=== PATIENT | female | born 1965 | race Two or more races ===

== ENCOUNTER 2021-03-11 22:48 | Inpatient (IN) | payer MEDICAID, OTHER ==
[~2021-03-11] VITALS: Ht 172.7 cm; Wt 78.5 kg
[2021-03-11] MEDS ORDERED: IPRATROPIUM BROMIDE (0.02%) 0.5MG/2.5ML NEB HHN STA (23:59)
[2021-03-11] MEDS ORDERED: ALBUTEROL (0.083%) 2.5MG/3ML NEB HHN STA (23:59)
[2021-03-11] MEDS ORDERED: METHYLPREDNISOLONE SOD SUCC 125 MG/2 ML VIAL IV STA (23:59)
[2021-03-12 01:26] LABS: HEMATOCRIT. 36.6 % (36.0-48.0); HEMOGLOBIN. 11.7 g/dL (12.0-16.0); MEAN CORPUSCULAR HEMOGLOBIN 27.2 pg (28.0-32.0); MEAN CORPUSCULAR VOLUME 85.3 fL (81.0-99.0); MEAN PLATELET VOLUME 8.3 fl (7.4-10.4); PLATELET 299 x1000/uL (130-400); RED BLOOD CELL COUNT 4.29 mill/uL (4.2-5.4)
[2021-03-12 01:35] LABS: CHLORIDE 108 mEq/L (98-107)
[2021-03-12 01:53] LABS: PLATELET ESTIMATE NORMAL
[2021-03-12 03:19] LABS: BG BASE EXCESS 1.6 mmol/L (-2.0-2.0); BG CARBOXYHEMOGLOBIN 0.4 % (0.5-1.5); BG DEOXYHEMOGLOBIN 0.7 % (0.0-5.0); BG FRACTION INSPIRED OXYGEN 100; BG HCO3 ACT 28.6 mmol/L (22.0-26.0); BG METHEMOGLOBIN 0.3 % (0.0-1.5); BG OXYGEN SATURATION 99.3 % (92.0-98.5); BG OXYHEMOGLOBIN 98.6 % (94.0-97.0); BG PCO2 55.3 mmHg (35.0-45.0); BG PH 7.331 (7.350-7.450); BG PO2 283.7 mmHg (75.0-100.0); BG SAMPLE SITE LEFT RADIAL; BG TOTAL HEMOGLOBIN 13.2 g/dL (12.0-18.0); BG VENT MODE MASK - BIPAP
[2021-03-12] MEDS ORDERED: ACETAMINOPHEN 325MG TABLET PO PRN (10:15)
[2021-03-12] MEDS ORDERED: IPRATROPIUM/ALBUTEROL 0.5-3(2.5)MG/3ML NEB HHN PRN (10:15)
[2021-03-12] MEDS ORDERED: CEFTRIAXONE 1,000 MG in DEXTROSE 5% WATER 50 ML IV SCH (10:30)
[2021-03-12] MEDS ORDERED: CEFTRIAXONE SODIUM 1 G/VIAL ONE (10:44)
[2021-03-12] MEDS ORDERED: DEXTROSE 50% WATER 50ML SYRINGE IV PRN (11:00)
[2021-03-12] MEDS: METHYLPREDNISOLONE SOD SUCC 40 MG/ML VIAL IV SCH ×2 (11:23→18:02)
[2021-03-12] MEDS: BLOOD SUGAR DIAGNOSTIC STRIP TEST SCH ×4 (11:42→20:09)
[2021-03-12 11:58] LABS: CLARITY URINE CLEAR (CLEAR); COLOR URINE YELLOW (YELLOW); KETONES URINE NEGATIVE (NEGATIVE); LEUKOCYTE ESTERASE URINE NEGATIVE (NEGATIVE); NITRITE URINE NEGATIVE (NEGATIVE); OCCULT BLOOD URINE NEGATIVE (NEGATIVE); PH URINE 7.5 (4.5-8.0); PROTEIN URINE NEGATIVE (NEGATIVE); SPECIFIC GRAVITY URINE 1.008 (1.005-1.030)
[2021-03-12 13:38] LABS: BG BASE EXCESS 4.4 mmol/L (-2.0-2.0); BG CARBOXYHEMOGLOBIN 0.2 % (0.5-1.5); BG DEOXYHEMOGLOBIN 1.8 % (0.0-5.0); BG FRACTION INSPIRED OXYGEN 40; BG HCO3 ACT 31.3 mmol/L (22.0-26.0); BG METHEMOGLOBIN 0.1 % (0.0-1.5); BG OXYGEN SATURATION 98.2 % (92.0-98.5); BG OXYHEMOGLOBIN 97.9 % (94.0-97.0); BG PCO2 57.9 mmHg (35.0-45.0); BG PH 7.351 (7.350-7.450); BG PO2 125.4 mmHg (75.0-100.0); BG SAMPLE SITE RIGHT BRACHIAL; BG TOTAL HEMOGLOBIN 12.1 g/dL (12.0-18.0); BG VENT MODE NASAL CANNULA
[2021-03-12] MEDS: INSULIN LISPRO 100 UNITS/ML SUBCUT SCH ×4 (13:50→20:09)
[2021-03-12 15:09] VITALS: BP 137/81
[2021-03-12 16:00] VITALS: BP 137/81
[2021-03-12] MEDS ORDERED: ASPI-1497 PO (17:33)
[2021-03-12] MEDS ORDERED: CLON1TAB23 PO (17:33)
[2021-03-12] MEDS ORDERED: AMLO10TA80 PO (17:33)
[2021-03-12] MEDS ORDERED: CLOZ100T31 MT (17:39)
[2021-03-12 18:00] VITALS: BP 105/74
[2021-03-12 20:00] VITALS: BP 123/92
[2021-03-12] MEDS: TEMAZEPAM 15MG CAPSULE PO SCH (20:09)
[2021-03-12] MEDS: FAMOTIDINE 20MG TABLET PO SCH (20:09)
[2021-03-12] MEDS: CLONAZEPAM 1MG TABLET PO SCH (20:09)
[2021-03-12] MEDS: LAMOTRIGINE 100MG TABLET PO SCH (20:09)
[2021-03-12] MEDS ORDERED: CLOZAPINE 100 MG TABLET XX SCH (21:00)
[2021-03-12 22:00] VITALS: BP 154/62
[2021-03-12 23:32] LABS: BG BASE EXCESS -2.1 mmol/L (-2.0-2.0); BG CARBOXYHEMOGLOBIN 0.1 % (0.5-1.5); BG DEOXYHEMOGLOBIN 1.2 % (0.0-5.0); BG FRACTION INSPIRED OXYGEN 100; BG METHEMOGLOBIN 0.3 % (0.0-1.5); BG OXYGEN SATURATION 98.8 % (92.0-98.5); BG OXYHEMOGLOBIN 98.4 % (94.0-97.0); BG PH 7.211 (7.350-7.450); BG PO2 198.4 mmHg (75.0-100.0); BG SAMPLE SITE LEFT RADIAL; BG TOTAL HEMOGLOBIN 12.3 g/dL (12.0-18.0); BG VENT MODE MASK - NRB
[2021-03-13] VITALS (12 sets, daily range): BP systolic 83–166; BP diastolic 39–94
[2021-03-13] MEDS: METHYLPREDNISOLONE SOD SUCC 40 MG/ML VIAL IV SCH ×3 (01:36→17:47)
[2021-03-13] MEDS: BLOOD SUGAR DIAGNOSTIC STRIP TEST SCH ×4 (07:30→20:32)
[2021-03-13] MEDS: INSULIN LISPRO 100 UNITS/ML SUBCUT SCH ×4 (08:00→20:36)
[2021-03-13 08:41] LABS: HEMATOCRIT. 34.2 % (36.0-48.0); HEMOGLOBIN. 10.9 g/dL (12.0-16.0); MEAN CORPUSCULAR HEMOGLOBIN 27.5 pg (28.0-32.0); MEAN CORPUSCULAR VOLUME 86.5 fL (81.0-99.0); MEAN PLATELET VOLUME 8.2 fl (7.4-10.4); PLATELET 309 x1000/uL (130-400); RED BLOOD CELL COUNT 3.96 mill/uL (4.2-5.4); RED CELL DISTRIBUTION WIDTH 15.6 % (11.6-14.6)
[2021-03-13 08:48] LABS: CHLORIDE 107 mEq/L (98-107)
[2021-03-13] MEDS ORDERED: INFLUENZA VACCINE 05/PF 0.5 ML SYRINGE IM ONE (09:00)
[2021-03-13] MEDS: LITHIUM CARBONATE 150 MG CAPSULE PO SCH ×2 (10:22→17:47)
[2021-03-13] MEDS: CEFTRIAXONE 1,000 MG in DEXTROSE 5% WATER 50 ML IV SCH (10:22)
[2021-03-13] MEDS: ENOXAPARIN 40MG/0.4ML SYR SUBCUT SCH (13:25)
[2021-03-13 13:41] LABS: PLATELET ESTIMATE NORMAL
[2021-03-13 14:53] LABS: BG BASE EXCESS 2.5 mmol/L (-2.0-2.0); BG CARBOXYHEMOGLOBIN 0.3 % (0.5-1.5); BG DEOXYHEMOGLOBIN 1.3 % (0.0-5.0); BG FRACTION INSPIRED OXYGEN 70; BG HCO3 ACT 29.7 mmol/L (22.0-26.0); BG OXYGEN SATURATION 98.7 % (92.0-98.5); BG OXYHEMOGLOBIN 98.4 % (94.0-97.0); BG PCO2 59.6 mmHg (35.0-45.0); BG PH 7.316 (7.350-7.450); BG PO2 168.3 mmHg (75.0-100.0); BG SAMPLE SITE RIGHT BRACHIAL; BG TOTAL HEMOGLOBIN 11.3 g/dL (12.0-18.0); BG TOTAL RESPIRATORY RATE 23 b/min; BG VENT MODE MASK - BIPAP
[2021-03-13] MEDS: CLONAZEPAM 1MG TABLET PO SCH (20:31)
[2021-03-13] MEDS: FAMOTIDINE 20MG TABLET PO SCH (20:31)
[2021-03-13] MEDS: LAMOTRIGINE 100MG TABLET PO SCH (20:31)
[2021-03-13] MEDS: TEMAZEPAM 15MG CAPSULE PO SCH (20:31)
[2021-03-13] MEDS: CLOZAPINE 100 MG TABLET XX SCH (20:32)
[2021-03-13] MEDS: CLOZAPINE 200 MG XX SCH (20:32)
[2021-03-14] VITALS (9 sets, daily range): BP systolic 103–157; BP diastolic 58–91
[2021-03-14] MEDS: METHYLPREDNISOLONE SOD SUCC 40 MG/ML VIAL IV SCH ×3 (02:33→18:18)
[2021-03-14] MEDS: ONDANSETRON HCL 4MG/2ML INJ IV PRN ×2 (04:57→06:37)
[2021-03-14 08:11] LABS: HEMOGLOBIN. 11.2 g/dL (12.0-16.0); MEAN CORPUSCULAR HEMOGLOBIN 27.5 pg (28.0-32.0); MEAN CORPUSCULAR VOLUME 86.1 fL (81.0-99.0); MEAN PLATELET VOLUME 8.3 fl (7.4-10.4); PLATELET 309 x1000/uL (130-400); RED BLOOD CELL COUNT 4.06 mill/uL (4.2-5.4); RED CELL DISTRIBUTION WIDTH 15.4 % (11.6-14.6)
[2021-03-14 08:18] LABS: CHLORIDE 106 mEq/L (98-107)
[2021-03-14] MEDS: ENOXAPARIN 40MG/0.4ML SYR SUBCUT SCH (09:35)
[2021-03-14] MEDS: LITHIUM CARBONATE 150 MG CAPSULE PO SCH ×2 (09:36→18:19)
[2021-03-14] MEDS: CEFTRIAXONE 1,000 MG in DEXTROSE 5% WATER 50 ML IV SCH (09:36)
[2021-03-14] MEDS ORDERED: LORAZEPAM 2MG/ML CPJ IV PRN (11:00)
[2021-03-14 12:43] LABS: BG BASE EXCESS 5.9 mmol/L (-2.0-2.0); BG CARBOXYHEMOGLOBIN 0.4 % (0.5-1.5); BG DEOXYHEMOGLOBIN 2.1 % (0.0-5.0); BG FRACTION INSPIRED OXYGEN 36; BG HCO3 ACT 32.3 mmol/L (22.0-26.0); BG METHEMOGLOBIN 0.3 % (0.0-1.5); BG OXYGEN SATURATION 97.9 % (92.0-98.5); BG OXYHEMOGLOBIN 97.2 % (94.0-97.0); BG PCO2 55.8 mmHg (35.0-45.0); BG PH 7.381 (7.350-7.450); BG PO2 108.9 mmHg (75.0-100.0); BG SAMPLE SITE LEFT RADIAL; BG TOTAL HEMOGLOBIN 11.5 g/dL (12.0-18.0); BG VENT MODE NASAL CANNULA
[2021-03-14 16:49] LABS: PLATELET ESTIMATE NORMAL
[2021-03-14] MEDS: CLONAZEPAM 1MG TABLET PO SCH (20:27)
[2021-03-14] MEDS: FAMOTIDINE 20MG TABLET PO SCH (20:27)
[2021-03-14] MEDS: LAMOTRIGINE 100MG TABLET PO SCH (20:28)
[2021-03-14] MEDS: CLOZAPINE 100 MG TABLET XX SCH (20:28)
[2021-03-14] MEDS: CLOZAPINE 200 MG XX SCH (20:28)
[2021-03-14] MEDS: TEMAZEPAM 15MG CAPSULE PO SCH (20:28)
[2021-03-15] VITALS: BP 127/73
[2021-03-15] MEDS: METHYLPREDNISOLONE SOD SUCC 40 MG/ML VIAL IV SCH ×2 (02:00→09:34)
[2021-03-15 04:00] VITALS: BP 121/69
[2021-03-15] MEDS: CEFTRIAXONE 1,000 MG in DEXTROSE 5% WATER 50 ML IV SCH (08:32)
[2021-03-15] MEDS: ENOXAPARIN 40MG/0.4ML SYR SUBCUT SCH (08:33)
[2021-03-15] MEDS: LITHIUM CARBONATE 150 MG CAPSULE PO SCH ×2 (08:34→20:48)
[2021-03-15 12:00] VITALS: BP 141/78
[2021-03-15 14:00] VITALS: BP 132/84
[2021-03-15 16:00] VITALS: BP 140/84
[2021-03-15 17:56] VITALS: BP 113/78
[2021-03-15] MEDS: TEMAZEPAM 15MG CAPSULE PO SCH (20:47)
[2021-03-15] MEDS: RISPERIDONE 0.5MG TABLET PO SCH (20:48)
[2021-03-15] MEDS: CLONAZEPAM 1MG TABLET PO SCH (20:48)
[2021-03-15] MEDS: LAMOTRIGINE 100MG TABLET PO SCH (20:48)
[2021-03-15] MEDS: FAMOTIDINE 20MG TABLET PO SCH (20:48)
[2021-03-15] MEDS: CLOZAPINE 200 MG XX SCH (20:55)
[2021-03-15] MEDS: CLOZAPINE 100 MG TABLET XX SCH (20:55)
[2021-03-15] MEDS ORDERED: METHYLPREDNISOLONE SOD SUCC 40 MG/ML VIAL IV SCH (21:00)
[2021-03-16] MEDS ORDERED: METHYLPREDNISOLONE SOD SUCC 40 MG/ML VIAL IV SCH (09:00)
[2021-03-16] MEDS: ENOXAPARIN 40MG/0.4ML SYR SUBCUT SCH (09:02)
[2021-03-16] MEDS: RISPERIDONE 0.5MG TABLET PO SCH ×2 (09:04→20:27)
[2021-03-16] MEDS: LITHIUM CARBONATE 150 MG CAPSULE PO SCH ×2 (09:05→17:12)
[2021-03-16] MEDS: CEFTRIAXONE 1,000 MG in DEXTROSE 5% WATER 50 ML IV SCH (09:26)
[2021-03-16 20:00] VITALS: BP 135/84
[2021-03-16] MEDS: TEMAZEPAM 15MG CAPSULE PO SCH (20:26)
[2021-03-16] MEDS: CLONAZEPAM 1MG TABLET PO SCH (20:27)
[2021-03-16] MEDS: LAMOTRIGINE 100MG TABLET PO SCH (20:28)
[2021-03-16] MEDS: CLOZAPINE 100 MG TABLET XX SCH (20:31)
[2021-03-16] MEDS: CLOZAPINE 200 MG XX SCH (20:31)
[2021-03-16] MEDS: FAMOTIDINE 20MG TABLET PO SCH (20:32)
[2021-03-17] VITALS: BP 119/62
[2021-03-17 04:00] VITALS: BP 113/64
[2021-03-17] MEDS: LITHIUM CARBONATE 150 MG CAPSULE PO SCH (08:10)
[2021-03-17] MEDS: RISPERIDONE 0.5MG TABLET PO SCH (08:10)
[2021-03-17] MEDS: CEFTRIAXONE 1,000 MG in DEXTROSE 5% WATER 50 ML IV SCH (08:11)
[2021-03-17] MEDS: ENOXAPARIN 40MG/0.4ML SYR SUBCUT SCH (08:11)
[2021-03-17 08:52] VITALS: BP 129/71
[2021-03-17 09:01] VITALS: BP 126/72
[2021-03-17] MEDS ORDERED: RISPERIDONE 0.5MG TABLET PO SCH (21:00)
== END 2021-03-17 16:15 | DRG 139 ==
LOC: ER 22:48 → MICUSO 03-12 03:40 → EDBEDREQTM 03-12 03:44 → EDBEDREQ 03-12 03:44 → EDBEDREQSVC 03-12 03:44 → 5EST 03-12 17:24
PROVIDERS: ADMIT Internal Medicine; ATTEND Internal Medicine
PROC: 5A09357 Assistance with Respiratory Ventilation, Less than 24 Consecutive Hours, Continuous Positive Airway Pressure (ICD-10-PCS; principal; 2021-03-12)
PROC: 5A09357 Assistance with Respiratory Ventilation, Less than 24 Consecutive Hours, Continuous Positive Airway Pressure (ICD-10-PCS; 2021-03-13)
DX: J18.9 Pneumonia, unspecified organism (principal); J96.01 Acute respiratory failure with hypoxia; G92.8 Other toxic encephalopathy; E87.2 Acidosis; F25.9 Schizoaffective disorder, unspecified; D72.829 Elevated white blood cell count, unspecified; E11.9 Type 2 diabetes mellitus without complications; J44.0 Chronic obstructive pulmonary disease with (acute) lower respiratory infection; J44.1 Chronic obstructive pulmonary disease with (acute) exacerbation; T38.0X5A Adverse effect of glucocorticoids and synthetic analogues, initial encounter; Z20.822 Contact with and (suspected) exposure to COVID-19; E87.8 Other disorders of electrolyte and fluid balance, not elsewhere classified; F31.9 Bipolar disorder, unspecified; Z99.81 Dependence on supplemental oxygen; Y92.89 Other specified places as the place of occurrence of the external cause
CPT/HCPCS: 36415; 36600; 71045; 80048; 80053; 81003; 82375; 82805; 82962; 83036; 83880; 84145; 84484; 85025; 87426; 87635; 90686; 93005; 94640; 94660; 99291; C1893; J0696; J1650; J1815; J2060; J2405; J2920; J2930; J7060

== ENCOUNTER 2021-03-22 03:48 | Inpatient (IN) | payer OTHER ==
[~2021-03-22] VITALS: Ht 162.6 cm; Wt 93.9 kg
[~2021-03-22 03:48] MED LIST: AMLO10TA80 PO; ASPI-1497 PO; CLON1TAB23 PO; CLOZ100T31 MT
[2021-03-22] MEDS ORDERED: IPRATROPIUM BROMIDE (0.02%) 0.5MG/2.5ML NEB HHN STA (03:55)
[2021-03-22] MEDS ORDERED: METHYLPREDNISOLONE SOD SUCC 125 MG/2 ML VIAL IV STA (03:55)
[2021-03-22] MEDS ORDERED: ALBUTEROL (0.083%) 2.5MG/3ML NEB HHN STA (03:55)
[2021-03-22] MEDS ORDERED: LEVOFLOXACIN 750MG PREMIX 150 ML IV ONE (04:00)
[2021-03-22] MEDS ORDERED: QUETIAPINE FUMARATE 50MG TABLET PO SCH (04:15)
[2021-03-22 05:19] LABS: CHLORIDE 108 mEq/L (98-107)
[2021-03-22 05:25] LABS: HEMATOCRIT. 38.3 % (36.0-48.0); MEAN CORPUSCULAR HEMOGLOBIN 27.6 pg (28.0-32.0); MEAN CORPUSCULAR VOLUME 87.8 fL (81.0-99.0); MEAN PLATELET VOLUME 8.1 fl (7.4-10.4); PLATELET 295 x1000/uL (130-400); RED BLOOD CELL COUNT 4.35 mill/uL (4.2-5.4); RED CELL DISTRIBUTION WIDTH 16.4 % (11.6-14.6)
[2021-03-22 05:40] LABS: BG BASE EXCESS 1.6 mmol/L (-2.0-2.0); BG CARBOXYHEMOGLOBIN 0.8 % (0.5-1.5); BG FRACTION INSPIRED OXYGEN 32; BG HCO3 ACT 27.9 mmol/L (22.0-26.0); BG OXYGEN SATURATION 92.9 % (92.0-98.5); BG OXYHEMOGLOBIN 92.2 % (94.0-97.0); BG PCO2 51.3 mmHg (35.0-45.0); BG PH 7.353 (7.350-7.450); BG PO2 67.3 mmHg (75.0-100.0); BG SAMPLE SITE RIGHT RADIAL; BG TOTAL HEMOGLOBIN 11.7 g/dL (12.0-18.0); BG VENT MODE NASAL CANNULA
[2021-03-22 07:26] LABS: PLATELET ESTIMATE NORMAL
[2021-03-22] MEDS ORDERED: IPRATROPIUM/ALBUTEROL 0.5-3(2.5)MG/3ML NEB HHN PRN (19:00)
[2021-03-22] MEDS ORDERED: LEVOFLOXACIN 500MG PREMIX 100 ML IV SCH (19:00)
[2021-03-22] MEDS ORDERED: LORAZEPAM 2MG/ML CPJ IV PRN (19:00)
[2021-03-22 22:00] VITALS: BP 144/81
[2021-03-23] VITALS: BP 139/85
[2021-03-23 04:00] VITALS: BP 118/72
[2021-03-23] MEDS: LEVOFLOXACIN 250MG PREMIX 50 ML IV SCH (06:09)
[2021-03-23 07:17] LABS: BASOPHILS % 0.2 % (0.0-2.0); EOSINOPHILS % 0.5 % (0.0-5.0); HEMATOCRIT. 33.3 % (36.0-48.0); HEMOGLOBIN. 10.7 g/dL (12.0-16.0); LYMPHOCYTES % 9.1 % (20.0-50.0); MEAN CORPUSCULAR VOLUME 86.7 fL (81.0-99.0); MONOCYTES % 6.2 % (2.0-8.0); PLATELET 290 x1000/uL (130-400); RED BLOOD CELL COUNT 3.84 mill/uL (4.2-5.4); RED CELL DISTRIBUTION WIDTH 16.4 % (11.6-14.6)
[2021-03-23 08:00] VITALS: BP 140/84
[2021-03-23 08:17] LABS: CHLORIDE 111 mEq/L (98-107)
[2021-03-23 12:00] VITALS: BP 135/82
[2021-03-23 15:38] LABS: CLARITY URINE CLEAR (CLEAR); COLOR URINE YELLOW (YELLOW); KETONES URINE NEGATIVE (NEGATIVE); LEUKOCYTE ESTERASE URINE NEGATIVE (NEGATIVE); NITRITE URINE NEGATIVE (NEGATIVE); OCCULT BLOOD URINE NEGATIVE (NEGATIVE); PH URINE 6.5 (4.5-8.0); PROTEIN URINE TRACE (NEGATIVE); SPECIFIC GRAVITY URINE 1.017 (1.005-1.030)
[2021-03-23 16:00] VITALS: BP 149/78
[2021-03-23 20:00] VITALS: BP 101/62
[2021-03-24] VITALS: BP 118/60
[2021-03-24 04:00] VITALS: BP 123/66
[2021-03-24] MEDS: LEVOFLOXACIN 250MG PREMIX 50 ML IV SCH (06:06)
[2021-03-24 07:22] LABS: CHLORIDE 110 mEq/L (98-107)
[2021-03-24 07:49] LABS: BASOPHILS % 0.6 % (0.0-2.0); EOSINOPHILS % 2.7 % (0.0-5.0); HEMATOCRIT. 36.9 % (36.0-48.0); HEMOGLOBIN. 11.9 g/dL (12.0-16.0); LYMPHOCYTES % 17.7 % (20.0-50.0); MEAN CORPUSCULAR VOLUME 86.3 fL (81.0-99.0); MEAN PLATELET VOLUME 8.1 fl (7.4-10.4); MONOCYTES % 6.7 % (2.0-8.0); NEUTROPHILS % 72.3 % (40.0-76.0); PLATELET 325 x1000/uL (130-400); RED BLOOD CELL COUNT 4.27 mill/uL (4.2-5.4)
[2021-03-24 08:00] VITALS: BP 133/74
[2021-03-24 12:00] VITALS: BP 110/56
[2021-03-24 13:13] VITALS: BP 110/56
== END 2021-03-24 15:45 | DRG 720 ==
LOC: ER 03:48 → ENRESERV 19:14 → 8WST 21:50
PROVIDERS: ADMIT Internal Medicine; ATTEND Internal Medicine
DX: A41.9 Sepsis, unspecified organism (principal); J96.01 Acute respiratory failure with hypoxia; F20.9 Schizophrenia, unspecified; E87.8 Other disorders of electrolyte and fluid balance, not elsewhere classified; J44.9 Chronic obstructive pulmonary disease, unspecified; Z20.822 Contact with and (suspected) exposure to COVID-19; Z87.01 Personal history of pneumonia (recurrent); J18.9 Pneumonia, unspecified organism
CPT/HCPCS: 36415; 36600; 71045; 80048; 80053; 81003; 82375; 82805; 83880; 84484; 85025; 85379; 87426; 93005; 94640; 99285; J1956; J2930

== ENCOUNTER 2021-04-15 22:26 | Inpatient (IN) | payer OTHER ==
[~2021-04-15] VITALS: Ht 162.6 cm; Wt 93.0 kg
[2021-04-15] MEDS ORDERED: NALOXONE HCL 0.4 MG/ML 1ML VIAL IV PRN (23:30)
[2021-04-15] MEDS ORDERED: SODIUM CHLORIDE 0.9% 1,000 ML IV ONE (23:30)
[2021-04-16 00:43] LABS: BASOPHILS % 0.5 % (0.0-2.0); EOSINOPHILS % 1.7 % (0.0-5.0); HEMATOCRIT. 38.2 % (36.0-48.0); HEMOGLOBIN. 12.1 g/dL (12.0-16.0); LYMPHOCYTES % 9.7 % (20.0-50.0); MEAN CORPUSCULAR HEMOGLOBIN 27.2 pg (28.0-32.0); MEAN CORPUSCULAR VOLUME 86.1 fL (81.0-99.0); MEAN PLATELET VOLUME 8.4 fl (7.4-10.4); MONOCYTES % 6.1 % (2.0-8.0); PLATELET 323 x1000/uL (130-400); RED BLOOD CELL COUNT 4.44 mill/uL (4.2-5.4); RED CELL DISTRIBUTION WIDTH 15.9 % (11.6-14.6)
[2021-04-16 01:19] LABS: CHLORIDE 104 mEq/L (98-107)
[2021-04-16 01:24] LABS: ETHANOL BLOOD < 10 mg/dL
[2021-04-16 01:27] LABS: CREATINE KINASE 34 IU/L (26-192)
[2021-04-16 04:33] LABS: CLARITY URINE CLEAR (CLEAR); COLOR URINE YELLOW (YELLOW); KETONES URINE NEGATIVE (NEGATIVE); LEUKOCYTE ESTERASE URINE NEGATIVE (NEGATIVE); NITRITE URINE NEGATIVE (NEGATIVE); OCCULT BLOOD URINE NEGATIVE (NEGATIVE); PH URINE 8.5 (4.5-8.0); PROTEIN URINE NEGATIVE (NEGATIVE); SPECIFIC GRAVITY URINE 1.007 (1.005-1.030); UROBILINOGEN URINE 0.2 E.U./dL (0.2-1.0)
[2021-04-16 04:48] LABS: *AMPHETAMINES SCREEN URINE NEGATIVE (NEGATIVE); *BARBITURATES SCREEN URINE NEGATIVE (NEGATIVE); *BENZODIAZEPINES SCREEN URINE NEGATIVE (NEGATIVE); *COCAINE SCREEN URINE NEGATIVE (NEGATIVE)
[2021-04-16 04:49] LABS: CANNABINOID URINE SCREEN NEGATIVE (NEGATIVE); METHADONE URINE SCREEN NEGATIVE (NEGATIVE); OPIATES URINE SCREEN NEGATIVE (NEGATIVE); PHENCYCLIDINE URINE SCREEN NEGATIVE (NEGATIVE)
[2021-04-16] MEDS ORDERED: ACETAMINOPHEN 325MG TABLET PO PRN (09:15)
[2021-04-16] MEDS ORDERED: ONDANSETRON HCL 4MG/2ML INJ IV PRN (09:15)
[2021-04-16 11:00] VITALS: BP 113/65
[2021-04-16 12:00] VITALS: BP 113/65
[2021-04-16 16:00] VITALS: BP 128/85
[2021-04-16] MEDS ORDERED: IPRATROPIUM/ALBUTEROL 0.5-3(2.5)MG/3ML NEB HHN PRN (18:15)
[2021-04-16 20:00] VITALS: BP 113/70
[2021-04-17] VITALS: BP 126/81
[2021-04-17 02:30] VITALS: BP 108/67
[2021-04-17 04:00] VITALS: BP 105/65
[2021-04-17] MEDS ORDERED: LEVOTHYROXINE SODIUM 50MCG TABLET PO SCH (06:30)
[2021-04-17 08:00] VITALS: BP 131/68
[2021-04-17 08:04] LABS: BASOPHILS % 0.3 % (0.0-2.0); EOSINOPHILS % 0.6 % (0.0-5.0); HEMATOCRIT. 37.3 % (36.0-48.0); HEMOGLOBIN. 11.7 g/dL (12.0-16.0); LYMPHOCYTES % 7.7 % (20.0-50.0); MEAN CORPUSCULAR VOLUME 86.1 fL (81.0-99.0); MEAN PLATELET VOLUME 8.4 fl (7.4-10.4); MONOCYTES % 5.9 % (2.0-8.0); NEUTROPHILS % 85.5 % (40.0-76.0); PLATELET 356 x1000/uL (130-400); RED BLOOD CELL COUNT 4.33 mill/uL (4.2-5.4); RED CELL DISTRIBUTION WIDTH 16.1 % (11.6-14.6)
[2021-04-17 08:14] LABS: CHLORIDE 105 mEq/L (98-107)
[2021-04-17] MEDS ORDERED: LORAZEPAM 2MG/ML CPJ IV PRN ×2 (09:45)
[2021-04-17 13:58] VITALS: BP 142/85
[2021-04-17] MEDS ORDERED: LITHIUM CARBONATE 150 MG CAPSULE PO SCH (21:00)
== END 2021-04-17 14:35 | DRG 52 ==
LOC: ER 22:26 → MICUSO 04-16 05:29 → 8WST 04-16 09:41
PROVIDERS: ADMIT Internal Medicine; ATTEND Internal Medicine
DX: G93.41 Metabolic encephalopathy (principal); R65.10 Systemic inflammatory response syndrome (SIRS) of non-infectious origin without acute organ dysfunction; J44.9 Chronic obstructive pulmonary disease, unspecified; E03.9 Hypothyroidism, unspecified; F99 Mental disorder, not otherwise specified; Z20.822 Contact with and (suspected) exposure to COVID-19; Z79.82 Long term (current) use of aspirin; Z79.899 Other long term (current) drug therapy; W19.XXXA Unspecified fall, initial encounter
CPT/HCPCS: 36415; 71045; 74018; 80048; 80053; 80305; 80307; 80320; 80329; 81003; 82140; 82550; 83605; 83880; 84145; 84443; 84484; 85025; 87426; 99285; J2310; J2405; J7030; G0480